=== PATIENT | female | born 1950 | race Caucasian/White ===

== ENCOUNTER 2016-12-21 13:59 | Emergency (ER) | payer MEDICARE, OTHER ==
[2016-12-21] MEDS ORDERED: LIDOCAINE VISCOUS 2% 15 ML UDC MM STA (14:36)
[2016-12-21] MEDS ORDERED: MAG HYDROX/AL HYDROX/SIMETH 30 ML UDC PO STA (14:37)
[2016-12-21] MEDS ORDERED: LIDOCAINE VISCOUS 2% 15 ML UDC MM ONE (14:40)
[2016-12-21] MEDS ORDERED: MAG HYDROX/AL HYDROX/SIMETH 30 ML UDC ONE (14:40)
[2016-12-21] MEDS ORDERED: IOPAMIDOL-300 100 ML VIAL IVP ONE (15:44)
== END 2016-12-21 16:59 | disposition home or self-care (01) ==
DX: K52.9 Noninfective gastroenteritis and colitis, unspecified (principal); I10 Essential (primary) hypertension; Z87.891 Personal history of nicotine dependence
CPT/HCPCS: 36415; 74177; 80053; 81003; 83690; 84484; 85025; 99283; 99284; A9270; Q9967

== ENCOUNTER 2017-10-12 19:41 | Emergency (ER) | payer MEDICARE, OTHER ==
--- NOTE | 2017-10-12 20:07 | ED Physician Documentation ---
PD HPI HEENT - Stated complaint Stated Complaint: EAR/EYE PX - Chief complaint Chief Complaint: Heent - History obtained from History obtained from: Patient - History of Present Illness Timing - onset: How many days ago (2-3) Timing - duration: Days Timing - details: Gradual onset, Still present Location: Other (right eye and around the eye) Associated symptoms: Congestion, Facial swelling (right cheek and periorbital area), Other (some feeling of sinus pressure). 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, Oophrectomy - Present Medications Home Medications: Ambulatory Orders Medication Instructions Recorded Confirmed Metoprolol Tartrate 1 tab PO DAILY 05/03/14 12/21/16 Azithromycin [Zithromax] 250 mg PO DAILY #6 tablet 12/21/16 Cetirizine [ZyrTEC] 10 mg PO DAILY 12/21/16 12/21/16 HYDROcod/ACETAM 5/325 [[place] 5/325] 1 - 2 ea PO Q6H PRN #15 tablet 12/21/16 Lisinopril 40 mg PO DAILY 12/21/16 12/21/16 Pantoprazole [Protonix] 40 mg PO DAILY 12/21/16 12/21/16 Simvastatin 10 mg PO DAILY 12/21/16 12/21/16 busPIRone [Buspar] 10 mg PO DAILY 12/21/16 12/21/16 Cephalexin [Keflex] 500 mg PO QID #20 capsule 10/12/17 - Allergies Allergies/Adverse Reactions: Allergies Allergy/AdvReac Type Severity Reaction Status Date / Time No Known Drug Allergies Allergy Verified 10/12/17 19:47 - Social History Does the pt smoke?: No Smoking Status: Former smoker Does the pt drink ETOH?: No Does the pt have substance abuse?: No - Immunizations Immunizations are current?: No Immunizations: TDAP >10years/unknown PD ED PE NORMAL - Vitals Vital signs reviewed: Yes - General General: Alert and oriented X 3, No acute distress, Well developed/nourished - HEENT HEENT: PERRL, EOMI, Ears normal, Pharynx benign - Neck Neck: Supple, no meningeal sign, No adenopathy - Cardiac Cardiac: RRR, No murmur - Respiratory Respiratory: Clear bilaterally PD ED PE EXPANDED - Eyes Eyes: Eyelid swelling, Eyelid erythema, Injected conj/sclera, Exudate, Anterior chambers clear, Normal fundi. No: Corneal FB Results - Vitals Vitals: Vital Signs - 24 hr 10/12/17 10/12/17 19:42 20:09 Temperature 36.9 C 36.2 C L Heart Rate 85 87 Respiratory 18 18 Rate Blood Pressure 154/88 H 134/93 H O2 Saturation 100 97 Oxygen O2 Source Room air PD MEDICAL DECISION MAKING - ED course Complexity details: reviewed results, considered differential, d/w patient Departure - Departure Disposition: 01 Home, Self Care Clinical Impression: Periorbital cellulitis of right eye Conjunctivitis Qualifiers: Conjunctivitis type: acute Acute conjunctivitis type: bacterial Laterality: right Qualified Code(s): H10.31 - Unspecified acute conjunctivitis, right eye Condition: Stable Record reviewed to determine appropriate education?: Yes Instructions: ED Cellulitis Facial, ED Conjunctivitis Bacterial Follow-Up: Troy Mitchell MD [Primary Care Provider] - Prescriptions: Cephalexin [Keflex] 500 mg PO QID #20 capsule Comments: Use the antibiotic eyedrops in both eyes initially for the first day or so and then just the right eye for 3-5 days until fully improved. There is infection appearance of the skin as well and so use oral Keflex 4 times a day for 5 days. We did do a culture and will see what that results in a few days and call you if we need to amend the antibiotic. Tylenol or ibuprofen if needed for pains.
[2017-10-12 20:11] VITALS: BP 134/93
[2017-10-12] MEDS ORDERED: SULFACETAMIDE 10% OPHTH DROPS RIGHTEYE STA (20:17)
[2017-10-12] MEDS ORDERED: cephALEXin 250 MG CAPSULE PO STA (20:17)
== END 2017-10-12 20:30 | disposition home or self-care (01) ==
LOC: ED 19:41
DX: L03.213 Periorbital cellulitis (principal); H10.31 Unspecified acute conjunctivitis, right eye; I10 Essential (primary) hypertension; Z87.891 Personal history of nicotine dependence
CPT/HCPCS: 87070; 99283; A9270

== ENCOUNTER 2019-07-03 14:20 | Outpatient (CLI) | payer MEDICARE, BC, OTHER ==
[2019-07-03 14:38] LABS: BILIRUBIN,URINE NEGATIVE (NEGATIVE); GLUCOSE, URINE (UA) NEGATIVE (NEGATIVE); KETONES,URINE (UA) NEGATIVE (NEGATIVE); LEUKOCYTE ESTERASE, URINE NEGATIVE (NEGATIVE); NITRITE,URINE NEGATIVE (NEGATIVE); OCCULT BLOOD,URINE TRACE-INTA (NEGATIVE); PH,URINE 5.5 PH (5.0-7.5); PROTEIN,URINE NEGATIVE (NEGATIVE); UROBILINOGEN,URINE 0.2 (NORMAL) E.U./dL (NORMAL)
[2019-07-03 14:43] LABS: BASOPHILS # (AUTO) 0.1 10^3/uL (0.0-0.1); BASOPHILS % (AUTO) 0.9 %; EOSINOPHILS # (AUTO) 0.3 10^3/uL (0.0-0.7); EOSINOPHILS % (AUTO) 3.4 %; HGB - HEMOGLOBIN 13.4 g/dL (12.0-16.0); LYMPHOCYTES # (AUTO) 2.4 10^3/uL (1.5-3.5); LYMPHOCYTES % (AUTO) 32.5 %; MEAN CORPUSCULAR HEMOGLOBIN 28.5 pg (27.0-31.0); MEAN CORPUSCULAR HGB CONC 32.7 g/dL (32.0-36.0); MEAN PLATELET VOLUME 10.3 fL (7.9-10.8); MONOCYTES # (AUTO) 0.6 10^3/uL (0.0-1.0); MONOCYTES % (AUTO) 7.9 %; NEUTROPHILS % (AUTO) 54.6 %; PLT - PLATELET COUNT 277 10^3/uL (130-450); RED BLOOD COUNT 4.71 10^6/uL (4.20-5.40); RED CELL DISTRIBUTION WIDTH 12.7 % (12.0-15.0); WHITE BLOOD COUNT 7.4 x10^3/uL (4.8-10.8)
[2019-07-03 14:45] LABS: BACTERIA,URINE None Seen /HPF (None Seen); CLARITY,URINE CLEAR (CLEAR); RBC,URINE 0-5 /HPF (0-5); SQUAMOUS EPITHELIAL CELL,UR FEW Squamous (<= Few)
[2019-07-03 14:51] LABS: CALCIUM 9.2 mg/dL (8.5-10.3); CREATININE 0.7 mg/dL (0.4-1.0)
[2019-07-03 16:11] LABS: HB2 TOTAL 13.6 g/dL; HEMOGLOBIN A1C 0.56 g/dL; HEMOGLOBIN A1C % 5.9 % (4.6-6.2)
== END 2019-07-03 14:21 | disposition home or self-care (01) ==
LOC: LAB 14:20
PROVIDERS: ATTEND Orthopaedic Surgery
DX: Z01.818 Encounter for other preprocedural examination (principal); R73.9 Hyperglycemia, unspecified; N39.0 Urinary tract infection, site not specified; E61.1 Iron deficiency
CPT/HCPCS: 36415; 80048; 81001; 83036; 84466; 85025; 87086; 93005

== ENCOUNTER 2021-09-11 22:31 | Emergency (ER) | payer MEDICARE, OTHER ==
[2021-09-11] MEDS ORDERED: MECLIZINE 12.5 MG TABLET PO STA (23:35)
[2021-09-11] MEDS ORDERED: CHERRY SYRUP 10 ML UDC PO ONE (23:35)
[2021-09-11] MEDS ORDERED: DEXAMETHASONE 10 MG/ML VIAL PO STA (23:35)
[2021-09-11] MEDS ORDERED: SODIUM CHLORIDE 0.9% 1,000 ML IV STA (23:35)
[2021-09-11 23:53] LABS: BASOPHILS % (AUTO) 0.3 %; EOSINOPHILS # (AUTO) 0.1 10^3/uL (0.0-0.7); EOSINOPHILS % (AUTO) 0.7 %; HCT - HEMATOCRIT 41.2 % (37.0-47.0); HGB - HEMOGLOBIN 13.9 g/dL (12.0-16.0); LYMPHOCYTES # (AUTO) 1.4 10^3/uL (1.5-3.5); LYMPHOCYTES % (AUTO) 11.7 %; MEAN CORPUSCULAR HEMOGLOBIN 28.4 pg (27.0-31.0); MEAN CORPUSCULAR HGB CONC 33.7 g/dL (32.0-36.0); MEAN CORPUSCULAR VOLUME 84.1 fL (81.0-99.0); MEAN PLATELET VOLUME 10.3 fL (7.9-10.8); MONOCYTES # (AUTO) 0.5 10^3/uL (0.0-1.0); MONOCYTES % (AUTO) 4.1 %; NEUTROPHILS # (AUTO) 9.7 10^3/uL (1.5-6.6); NEUTROPHILS % (AUTO) 82.9 %; PLT - PLATELET COUNT 266 10^3/uL (130-450); RED CELL DISTRIBUTION WIDTH 12.5 % (12.0-15.0); WHITE BLOOD COUNT 11.7 x10^3/uL (4.8-10.8)
[2021-09-12 00:03] LABS: ALBUMIN/GLOBULIN RATIO 1.4 (1.0-2.2); BILIRUBIN,TOTAL 0.7 mg/dL (0.2-1.0); CALCIUM 8.9 mg/dL (8.5-10.3); CREATININE 0.6 mg/dL (0.4-1.0); POTASSIUM 3.8 mmol/L (3.5-5.0); TOTAL PROTEIN 6.8 g/dL (6.7-8.2)
--- NOTE | 2021-09-12 00:37 | ED Physician Documentation ---
History of Present Illness - Stated complaint Stated Complaint: DIZZY/NAUSEA - Chief complaint Chief Complaint: Neuro - History obtained from History obtained from: Patient - History of Present Illness Timing: Other (2 months ago) - Additonal information Additional information: Previously well 71-year-old female presents to the emergency department with a 2-month history of intermittent dizziness that is related to by the position of her head. She has had worsening of this over the last several days and she has had some vomiting associated with this this morning. She states that she is extremely dizzy when she moves her head just a little bit. She has had some muffled hearing as well. Review of Systems Constitutional: denies: Fever Eyes: denies: Decreased vision Ears: reports: Loss of hearing. denies: Ear pain Nose: reports: Congestion. denies: Rhinorrhea / runny nose Throat: denies: Sore throat Cardiac: denies: Chest pain / pressure, Palpitations Respiratory: reports: Cough. denies: Dyspnea GI: reports: Nausea, Vomiting. denies: Abdominal Pain : denies: Dysuria, Frequency Skin: denies: Rash Musculoskeletal: denies: Neck pain, Back pain, Extremity pain Neurologic: reports: Other (dizziness/ spinning room associated with head movement.). 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, Oophrectomy - Present Medications Home Medications: Ambulatory Orders Medication Instructions Recorded Confirmed Metoprolol Tartrate 1 tab PO DAILY 05/03/14 12/21/16 Azithromycin [Zithromax] 250 mg PO DAILY #6 tablet 12/21/16 Cetirizine [ZyrTEC] 10 mg PO DAILY 12/21/16 12/21/16 HYDROcod/ACETAM 5/325 [[place] 5/325] 1 - 2 ea PO Q6H PRN #15 tablet 12/21/16 Pantoprazole [Protonix] 40 mg PO DAILY 12/21/16 12/21/16 Simvastatin 10 mg PO DAILY 12/21/16 12/21/16 busPIRone [Buspar] 10 mg PO DAILY 12/21/16 12/21/16 lisinopriL [Lisinopril] 40 mg PO DAILY 12/21/16 12/21/16 cephALEXin [Keflex] 500 mg PO QID #20 capsule 10/12/17 Meclizine [Antivert] 25 mg PO Q6H #20 tablet 09/12/21 Ondansetron Odt [Zofran] 4 mg TL Q6H PRN #10 tablet 09/12/21 - Allergies Allergies/Adverse Reactions: Allergies Allergy/AdvReac Type Severity Reaction Status Date / Time No Known Drug Allergies Allergy Verified 09/11/21 22:40 - Social History Does the pt smoke?: No Smoking Status: Former smoker Does the pt drink ETOH?: No Does the pt have substance abuse?: No - Immunizations Immunizations are current?: No Immunizations: TDAP >10years/unknown PD ED PE NORMAL - Vitals Vital signs reviewed: Yes (hypertnesive ) - General General: Alert and oriented X 3, No acute distress, Well developed/nourished - HEENT HEENT: Atraumatic, PERRL, EOMI, Other (both TM's are occluded by cerumen. This is irrigated to clear and the TM's are clear. Canals are small. 3 beats of nystagmus to the left 2 to the right. ) - Neck Neck: Supple, no meningeal sign, No bony TTP - Cardiac Cardiac: RRR, No murmur - Respiratory Respiratory: No respiratory distress, Clear bilaterally - Abdomen Abdomen: Normal bowel sounds, Soft, Non tender, Non distended, No organomegaly - Back Back: No CVA TTP, No spinal TTP - Derm Derm: Normal color, Warm and dry, No rash - Extremities Extremities: No deformity, No edema - Neuro Neuro: Alert and oriented X 3, cadd operator 2-12 intact, No motor deficit, No sensory deficit, Normal speech Eye Opening: Spontaneous Motor: Obeys Commands Verbal: Oriented GCS Score: 15 - Psych Psych: Normal mood, Normal affect Results - Vitals Vitals: Vital Signs - 24 hr 09/11/21 09/11/21 09/12/21 22:35 22:43 00:37 Temperature 36.7 C 36.7 C Heart Rate 91 91 65 Respiratory 16 16 Rate Blood Pressure 169/85 H 169/85 H 133/83 H O2 Saturation 100 100 100 09/12/21 01:05 Temperature 36.7 C Heart Rate 65 Respiratory 16 Rate Blood Pressure 133/83 H O2 Saturation 100 Oxygen O2 Source Room air - Labs Labs: Laboratory Tests 09/11/21 09/11/21 23:47 23:47 WBC 11.7 H RBC 4.90 Hgb 13.9 Hct 41.2 MCV 84.1 MCH 28.4 MCHC 33.7 RDW 12.5 Plt Count 266 MPV 10.3 Neut # (Auto) 9.7 H Lymph # (Auto) 1.4 L [place] # (Auto) 0.5 Eos # (Auto) 0.1 Baso # (Auto) 0.0 Absolute Nucleated RBC 0.00 Nucleated RBC % 0.0 Sodium 134 L Potassium 3.8 Chloride 102 Carbon Dioxide 21 Anion Gap 11.0 BUN 20 Creatinine 0.6 Estimated GFR (MDRD) 99 Glucose 113 H Calcium 8.9 Total Bilirubin 0.7 AST 16 ALT 15 Alkaline Phosphatase 81 Total Protein 6.8 Albumin 4.0 Globulin 2.8 Albumin/Globulin Ratio 1.4 Lipase 36 Procedures - IVC sono (time) 2250 Bedside IVC sono: IVC measures (cm) (1.09), Dehydration (est 1+ liter deficit) PD MEDICAL DECISION MAKING - ED course Complexity details: reviewed results, re-evaluated patient, considered differential, d/w patient ED course: 71-year-old female with a history of hypertension has developed some positional vertigo and on examination has 3 beats of nystagmus to the left two beats to the right. She is found to be mildly dehydrated on interrogation of the inferior vena cava and she is administered intravenous saline. She is also administered meclizine and dexamethasone. She has cerumen impaction bilaterally and this was removed with the use of a oil retention enema and irrigation with warm saline. This reveals normal-appearing TMs. The patient has improvement in her hearing.Near the conclusion of the visit we did practice the Aurea maneuver and reviewed the instruction sheet. I have encouraged the patient to attempt to do this several times per day. We will send the patient home with scripts for meclizine and Zofran. Departure - Departure Disposition: 01 Home, Self Care Clinical Impression: Benign positional vertigo Qualifiers: Laterality: bilateral Qualified Code(s): H81.13 - Benign paroxysmal vertigo, bilateral Condition: Stable Instructions: ED BPV Vertigo Follow-Up: EMILY RAMIRES DO [Primary Care Provider] - Prescriptions: Meclizine [Antivert] 25 mg PO Q6H #20 tablet Ondansetron Odt [Zofran] 4 mg TL Q6H PRN #10 tablet PRN Reason: Nausea / Vomiting Comments: [place], today it looks like you have benign positional vertigo. This is a condition where the cells that give the signal for the balance mechanism are out of place. There is an exercise you can do to help with this. Follow the instructions on the Aurea maneuver sheet and do this excersize both sides more than once per day. I have prescribed some medications for symptom control. Meclizine is for the dizziness and may be helpful but you cannot drive or operate machinery after you have taken it because it can be sedating. Zofran is for nausea. These medications have been e-scribed to [facility] in [place]. They are PRN medications and only need to be taken for symptoms. Discharge Date/Time: 09/12/21 01:10
[2021-09-12 00:42] VITALS: BP 133/83
== END 2021-09-12 01:10 | disposition home or self-care (01) ==
LOC: ED 22:31
DX: H81.13 Benign paroxysmal vertigo, bilateral (principal); H61.23 Impacted cerumen, bilateral; E86.0 Dehydration; Z87.891 Personal history of nicotine dependence; I10 Essential (primary) hypertension
CPT/HCPCS: 36415; 80053; 83690; 85025; 96360; 99282; 99284; A9270